=== PATIENT | male | born 1965 | race Caucasian/White ===

== ENCOUNTER 2021-12-19 21:09 | Emergency (ER) | payer SELFPAY ==
[~2021-12-19] VITALS: Ht 177.8 cm; Wt 129.3 kg
[2021-12-19 23:17] LABS: BASOPHILS ABSOLUTE AUTO 0.06 K/mm3 (0.00-0.23); BASOPHILS PERCENT AUTO 0 % (0-2); EOSINOPHILS ABSOLUTE AUTO 0.06 K/mm3 (0.00-0.68); EOSINOPHILS PERCENT AUTO 0 % (0-6); IMMATURE GRAN ABSOLUTE AUTO 0.14 K/mm3 (0.00-0.10); IMMATURE GRAN PERCENT AUTO 1 % (0-1); LYMPHOCYTES ABSOLUTE AUTO 3.58 K/mm3 (0.84-5.20); LYMPHOCYTES PERCENT AUTO 24 % (21-46); MONOCYTES ABSOLUTE AUTO 1.15 K/mm3 (0.16-1.47); MONOCYTES PERCENT AUTO 8 % (4-13); Mean Corpuscular HGB 28.9 pg (26.0-34.0); Mean Corpuscular HGB Conc 33.3 g/dL (31.5-36.5); Mean Corpuscular Volume 87 fL (80-100); Mean Platelet Volume 10.3 fL (9.1-12.4); NEUTROPHILS ABSOLUTE AUTO 10.12 K/mm3 (1.96-9.15); NEUTROPHILS PERCENT AUTO 67 % (41-73); Platelet Count 367 K/mm3 (150-400); RDW Coefficient Variation 12.9 % (11.7-14.2); RDW Standard Deviation 40.2 fL (35.1-46.3); White Blood Cell Count 15.11 K/mm3 (4.00-11.30)
[2021-12-19 23:29] LABS: Albumin, Blood 3.5 g/dL (3.4-5.0); Bilirubin, Total 0.5 mg/dL (0.1-1.0); Calcium, Blood 9.2 mg/dL (8.5-10.1); Creatinine, Blood 0.67 mg/dL (0.60-1.20); Globulin, Blood 3.4 g/dL (2.2-4.0); Potassium, Blood 4.1 mmol/L (3.5-5.5); Total Protein, Blood 6.9 g/dL (6.4-8.2)
[2021-12-20 01:13] LABS: Influenza A, PCR NEGATIVE (NEGATIVE); Influenza B, PCR NEGATIVE (NEGATIVE); Resp Syncytial Virus, PCR NEGATIVE (NEGATIVE); SARS-Cov-2 (COVID-19) PCR, MMC NEGATIVE (NEGATIVE)
== END 2021-12-20 04:59 | disposition short-term general hospital (02) ==
LOC: ER 21:09
PROVIDERS: Student in an Organized Health Care Education/Training Program
DX: I21.4 Non-ST elevation (NSTEMI) myocardial infarction (principal); K92.2 Gastrointestinal hemorrhage, unspecified; I10 Essential (primary) hypertension; D64.9 Anemia, unspecified; D72.829 Elevated white blood cell count, unspecified; Z20.822 Contact with and (suspected) exposure to COVID-19
CPT/HCPCS: 0241U; 71275; 80053; 83735; 83880; 84484; 85025; 93005; 93010; A9270; C9113; J2765; J7030; Q9967

== ENCOUNTER 2022-04-14 00:58 | Emergency (ER) | payer OTHER ==
[~2022-04-14] VITALS: Ht 177.8 cm; Wt 115.7 kg
[2022-04-14 02:15] LABS: BASOPHILS ABSOLUTE AUTO 0.05 K/mm3 (0.00-0.23); BASOPHILS PERCENT AUTO 0 % (0-2); EOSINOPHILS ABSOLUTE AUTO 0.07 K/mm3 (0.00-0.68); EOSINOPHILS PERCENT AUTO 1 % (0-6); Hematocrit 36.9 % (37.0-53.0); Hemoglobin 11.1 g/dL (13.5-17.5); IMMATURE GRAN ABSOLUTE AUTO 0.04 K/mm3 (0.00-0.10); IMMATURE GRAN PERCENT AUTO 0 % (0-1); LYMPHOCYTES ABSOLUTE AUTO 1.63 K/mm3 (0.84-5.20); LYMPHOCYTES PERCENT AUTO 14 % (21-46); MONOCYTES ABSOLUTE AUTO 0.72 K/mm3 (0.16-1.47); MONOCYTES PERCENT AUTO 6 % (4-13); Mean Corpuscular HGB 27.3 pg (26.0-34.0); Mean Corpuscular HGB Conc 30.1 g/dL (31.5-36.5); Mean Corpuscular Volume 91 fL (80-100); Mean Platelet Volume 9.9 fL (9.1-12.4); NEUTROPHILS ABSOLUTE AUTO 9.16 K/mm3 (1.96-9.15); NEUTROPHILS PERCENT AUTO 79 % (41-73); Platelet Count 385 K/mm3 (150-400); RDW Coefficient Variation 13.9 % (11.7-14.2); RDW Standard Deviation 45.7 fL (35.1-46.3); Red Blood Cell Count 4.07 M/mm3 (4.30-5.90); White Blood Cell Count 11.67 K/mm3 (4.00-11.30)
[2022-04-14 02:38] LABS: Albumin, Blood 3.2 g/dL (3.4-5.0); Albumin/Globulin Ratio 0.8 (0.8-1.8); Bilirubin, Total 0.5 mg/dL (0.1-1.0); Bun/Creatinine Ratio 19.4 (12.0-20.0); Calcium, Blood 9.1 mg/dL (8.5-10.1); Creatinine, Blood 1.75 mg/dL (0.60-1.20); Globulin, Blood 4.1 g/dL (2.2-4.0); Potassium, Blood 3.9 mmol/L (3.5-5.5); Total Protein, Blood 7.3 g/dL (6.4-8.2)
[2022-04-16] MEDS ORDERED: MELA3 PO (14:51)
[2022-04-16] MEDS ORDERED: ELIQUIS5 M2 PO (14:53)
[2022-04-16] MEDS ORDERED: ATORVASTATIN CA80 M1 PO (14:54)
[2022-04-16] MEDS ORDERED: CLOP75 PO (14:55)
[2022-04-16] MEDS ORDERED: Glucophage 500 mg PO (14:57)
[2022-04-16] MEDS ORDERED: METO50ER PO (14:58)
[2022-04-16] MEDS ORDERED: TORS10 PO (14:59)
[2022-04-16] MEDS ORDERED: TRAZ50 PO (15:00)
== END 2022-04-14 05:23 | disposition home or self-care (01) ==
LOC: ER 00:58
PROVIDERS: Emergency Medicine
DX: I50.9 Heart failure, unspecified (principal); E11.9 Type 2 diabetes mellitus without complications; Z95.5 Presence of coronary angioplasty implant and graft
CPT/HCPCS: 71045; 80053; 83880; 84484; 85025; 93005; 93010; J1940

== ENCOUNTER 2022-04-20 20:21 | Emergency (ER) | payer OTHER ==
[~2022-04-20] VITALS: Ht 177.8 cm; Wt 124.7 kg
[~2022-04-20 20:21] MED LIST: ATORVASTATIN CA80 M1 PO; BUME1 PO; CLOP75 PO; ELIQUIS5 M2 PO; INSULIN GL100 UNIT/1 SC; K-Dur10 MEQ PO; MELA3 PO; METF500 PO; METHYL B PO; METO50ER PO; MIDO5 PO; PANTOPRAZOLE SO40 M2 PO; TORSE20 PO; TRAZ50 PO
[2022-04-20 20:58] LABS: BASOPHILS ABSOLUTE AUTO 0.06 K/mm3 (0.00-0.23); BASOPHILS PERCENT AUTO 1 % (0-2); EOSINOPHILS ABSOLUTE AUTO 0.09 K/mm3 (0.00-0.68); EOSINOPHILS PERCENT AUTO 1 % (0-6); Hematocrit 33.5 % (37.0-53.0); Hemoglobin 10.3 g/dL (13.5-17.5); IMMATURE GRAN ABSOLUTE AUTO 0.03 K/mm3 (0.00-0.10); IMMATURE GRAN PERCENT AUTO 0 % (0-1); LYMPHOCYTES ABSOLUTE AUTO 2.09 K/mm3 (0.84-5.20); LYMPHOCYTES PERCENT AUTO 19 % (21-46); MONOCYTES ABSOLUTE AUTO 0.89 K/mm3 (0.16-1.47); MONOCYTES PERCENT AUTO 8 % (4-13); Mean Corpuscular HGB 27.2 pg (26.0-34.0); Mean Corpuscular HGB Conc 30.7 g/dL (31.5-36.5); Mean Corpuscular Volume 89 fL (80-100); Mean Platelet Volume 10.5 fL (9.1-12.4); NEUTROPHILS PERCENT AUTO 72 % (41-73); Platelet Count 442 K/mm3 (150-400); RDW Coefficient Variation 14.2 % (11.7-14.2); RDW Standard Deviation 45.7 fL (35.1-46.3); Red Blood Cell Count 3.78 M/mm3 (4.30-5.90); White Blood Cell Count 11.06 K/mm3 (4.00-11.30)
[2022-04-20 21:17] LABS: Alanine Aminotransfer (ALT/SGP 21 U/L (12-78); Albumin, Blood 3.3 g/dL (3.4-5.0); Albumin/Globulin Ratio 0.8 (0.8-1.8); Alk Phos 76 U/L (50-136); Anion Gap 7 mmol/L (6-16); Aspartate Aminotrans (AST/SGOT 48 U/L (12-37); Bilirubin, Total 0.9 mg/dL (0.1-1.0); Blood Urea Nitrogen 41 mg/dL (8-24); Bun/Creatinine Ratio 24.1 (12.0-20.0); CO2, Blood 28 mmol/L (21-32); Calcium, Blood 9.2 mg/dL (8.5-10.1); Chloride, Blood 103 mmol/L (98-108); Globulin, Blood 4.4 g/dL (2.2-4.0); Glomerular Filtration Rate 47 (60-); Glucose, Blood 157 mg/dL (70-99); Potassium, Blood 5.1 mmol/L (3.5-5.5); Sodium, Blood 138 mmol/L (136-145); Total Protein, Blood 7.7 g/dL (6.4-8.2)
[2022-04-20 23:16] LABS: Magnesium, Blood 2.5 mg/dL (1.6-2.4)
[2022-04-20 23:34] LABS: Source, Urine Clean Catch
[2022-04-20 23:37] LABS: Bilirubin, Urine Neg (Neg); Blood, Urine Neg (Neg); Glucose Qualitative, Urine Neg (Neg); Ketones, Urine Neg (Neg); Leukocyte Esterase, Urine Neg (Neg); Nitrite, Urine Neg (Neg); Protein, Urine Neg (Neg); Specific Gravity, Urine 1.015 (1.003-1.022); Urobilinogen, Urine NORM (Normal)
[2022-04-20 23:39] LABS: Appearance, Urine Clear (Clear); Color, Urine Yellow (P-Yellow)
[2022-04-21 00:15] LABS: Ethanol (Alcohol), Blood, Med <3 mg/dL
== END 2022-04-21 02:50 | disposition home or self-care (01) ==
LOC: ER 20:21
PROVIDERS: Emergency Medicine
DX: R18.8 Other ascites (principal); I50.9 Heart failure, unspecified; R14.0 Abdominal distension (gaseous); E11.9 Type 2 diabetes mellitus without complications; Z79.899 Other long term (current) drug therapy; Z79.01 Long term (current) use of anticoagulants; Z79.02 Long term (current) use of antithrombotics/antiplatelets; Z79.4 Long term (current) use of insulin
CPT/HCPCS: 36415; 71046; 74176; 80053; 81003; 83605; 83690; 83735; 83880; 84484; 85025; 93005; 93010; A9270; G0480; J1790

== ENCOUNTER 2022-05-09 13:44 | Inpatient (IN) | payer OTHER ==
[~2022-05-09] VITALS: Ht 177.8 cm; Wt 133.0 kg
[2022-05-09 14:27] LABS: BASOPHILS ABSOLUTE AUTO 0.05 K/mm3 (0.00-0.23); BASOPHILS PERCENT AUTO 1 % (0-2); EOSINOPHILS ABSOLUTE AUTO 0.06 K/mm3 (0.00-0.68); EOSINOPHILS PERCENT AUTO 1 % (0-6); Hematocrit 36.2 % (37.0-53.0); Hemoglobin 10.9 g/dL (13.5-17.5); IMMATURE GRAN ABSOLUTE AUTO 0.03 K/mm3 (0.00-0.10); IMMATURE GRAN PERCENT AUTO 0 % (0-1); LYMPHOCYTES ABSOLUTE AUTO 1.89 K/mm3 (0.84-5.20); LYMPHOCYTES PERCENT AUTO 18 % (21-46); MONOCYTES ABSOLUTE AUTO 1.07 K/mm3 (0.16-1.47); MONOCYTES PERCENT AUTO 10 % (4-13); Mean Corpuscular HGB 25.4 pg (26.0-34.0); Mean Corpuscular HGB Conc 30.1 g/dL (31.5-36.5); Mean Corpuscular Volume 84 fL (80-100); Mean Platelet Volume 9.7 fL (9.1-12.4); NEUTROPHILS ABSOLUTE AUTO 7.55 K/mm3 (1.96-9.15); NEUTROPHILS PERCENT AUTO 71 % (41-73); Platelet Count 398 K/mm3 (150-400); Red Blood Cell Count 4.29 M/mm3 (4.30-5.90); White Blood Cell Count 10.65 K/mm3 (4.00-11.30)
[2022-05-09 14:46] LABS: Albumin, Blood 3.2 g/dL (3.4-5.0); Albumin/Globulin Ratio 0.8 (0.8-1.8); Bilirubin, Total 0.8 mg/dL (0.1-1.0); Bun/Creatinine Ratio 18.7 (12.0-20.0); Calcium, Blood 9.2 mg/dL (8.5-10.1); Creatinine, Blood 2.03 mg/dL (0.60-1.20); Potassium, Blood 5.3 mmol/L (3.5-5.5); Total Protein, Blood 7.2 g/dL (6.4-8.2)
[2022-05-09] MEDS ORDERED: Insulin Glargine-Yfg SC (15:41)
[2022-05-09] MEDS ORDERED: ELIQUIS5 M2 PO (15:43)
[2022-05-09] MEDS ORDERED: ATORVASTATIN CA80 M1 PO (15:44)
[2022-05-09] MEDS ORDERED: BUME2 PO (15:45)
[2022-05-09] MEDS ORDERED: CLOP75 PO (15:47)
[2022-05-09] MEDS ORDERED: METO50ER PO (15:48)
[2022-05-09] MEDS ORDERED: MIDO5 PO (15:49)
[2022-05-09] MEDS ORDERED: PANT40 PO (15:51)
[2022-05-09] MEDS ORDERED: TRAZ100 PO (15:52)
[2022-05-09] MEDS ORDERED: VITAMIN D31000 UNI1 PO (18:12)
[2022-05-09] MEDS ORDERED: MIRALAX11910 PO (18:13)
--- NOTE | 2022-05-09 18:33 | NUR ---
ADMIT/SHIFT SUMMARY: PATIENT ADMIT TO MED 359. ABLE TO STAND AND TRANSFER WITH ONE PERSON ASSIST. USES WALKER AT BASELINE. BEDSIDE COMMODE AND WALKER TO VOID. ALERT AND ORIENTED X4. OVERALL WEAK. DENIES N/T. PERRLA, WEARING GLASSES. TELE SHOWING SINUS TACH WITH HR 90-110'S. DENIES CHEST PAIN/PRESSURE. BP ON SOFTER SIDE. PO MIDODRINE GIVEN WITH IV BUMEX. GENERALIZED EDEMA THROUGHOUT ENTIRE BODY. ON ROOM AIR SATING ABOVE 92% LUNGS SOUNDING DIM AND FINE CRACKLES IN BASES. SOB ON EXCERTION AND WITH MOVEMENTS. DENIES ABDOMINAL PAIN/NAUSEA. OCCASIONAL COUGH WITH SOME DRY HEAVING POST DINNER. PATIENT DENIES NEED FOR NAUSEA MEDS. COMPLAINS OF DISCOMFORT THROUGHOUT AND TIGHTNESS DUE TO SWELLING. FR IN PLACE WELL STRICT I/O. PATIENT EDUCATED ON UNIT, CALL LIGHT, FALL PREVENT AND PLAN OF CARE. ACHS BLOOD SUGARS. INSULIN PENS IN MED DRAWER. MED REC COMPLETED. WILL CONTINUE TO MONITOR AND REPORT OFF TO ONCOMING RN. MIGUEL IN AND UPDATED ON PLAN.
--- NOTE | 2022-05-10 05:00 | NUR ---
SUMMARY: PT A/OX4, CALLS APPROPRIATELY TO SPECIFY NEEDS AND IS PLEASANT AND COOPERRATIVE W/CARE. HE'S UP W/1PA TO BSC AND IS DIURESING WELL W/BUMEX. GENERALIZED EDEMA PERSISTS W/3+ SWELLING OBSERVED TO BLE'S. HE CONT'S TO BE SOB W/EXERTION BUT MAINTAINS SPO2>94% ON RA. LS DIMINISHED T/O W/FINE CRACKLES AUSCULTATED TO L.LOWER LOBE. PT COMPLIANT W/1500 FR AND STRICT I/O'S BEING MONITORED. HE'S NSR/S.TACH ON TELEMETRY W/HR 90'S-100'S BPM. TRAZADONE RECIEVED AT HS FOR GOOD EFFECT. NO ACUTE CHANGES, VSS/AFEBRILE. WCTM AND REPOPRT TO DAY RN.
[2022-05-10 05:28] LABS: BASOPHILS ABSOLUTE AUTO 0.03 K/mm3 (0.00-0.23); BASOPHILS PERCENT AUTO 0 % (0-2); EOSINOPHILS ABSOLUTE AUTO 0.09 K/mm3 (0.00-0.68); EOSINOPHILS PERCENT AUTO 1 % (0-6); Hematocrit 33.7 % (37.0-53.0); Hemoglobin 10.3 g/dL (13.5-17.5); IMMATURE GRAN ABSOLUTE AUTO 0.03 K/mm3 (0.00-0.10); IMMATURE GRAN PERCENT AUTO 0 % (0-1); LYMPHOCYTES ABSOLUTE AUTO 1.78 K/mm3 (0.84-5.20); LYMPHOCYTES PERCENT AUTO 19 % (21-46); MONOCYTES ABSOLUTE AUTO 0.87 K/mm3 (0.16-1.47); MONOCYTES PERCENT AUTO 9 % (4-13); Mean Corpuscular HGB 25.3 pg (26.0-34.0); Mean Corpuscular HGB Conc 30.6 g/dL (31.5-36.5); Mean Corpuscular Volume 83 fL (80-100); Mean Platelet Volume 9.7 fL (9.1-12.4); NEUTROPHILS ABSOLUTE AUTO 6.43 K/mm3 (1.96-9.15); NEUTROPHILS PERCENT AUTO 70 % (41-73); Platelet Count 352 K/mm3 (150-400); RDW Coefficient Variation 14.9 % (11.7-14.2); Red Blood Cell Count 4.07 M/mm3 (4.30-5.90); White Blood Cell Count 9.23 K/mm3 (4.00-11.30)
[2022-05-10 05:47] LABS: Albumin, Blood 3.2 g/dL (3.4-5.0); Albumin/Globulin Ratio 0.8 (0.8-1.8); Bilirubin, Total 0.7 mg/dL (0.1-1.0); Bun/Creatinine Ratio 19.6 (12.0-20.0); Calcium, Blood 9.1 mg/dL (8.5-10.1); Creatinine, Blood 2.04 mg/dL (0.60-1.20); Globulin, Blood 3.9 g/dL (2.2-4.0); Potassium, Blood 4.7 mmol/L (3.5-5.5); Total Protein, Blood 7.1 g/dL (6.4-8.2)
--- NOTE | 2022-05-10 09:21 | NUR ---
SPOKE TO DR TYSON- PT BP GAVE PO SHAGGY, JEROD TO SE ABOUT GIVING THE IV BUMEX. ORDER RECIEVED TO GIVE THE IV BUMEX NOW.
--- NOTE | 2022-05-10 12:06 | NUR ---
CRITICAL VALUE- CALLED DR TYSON AFTER LAB NOTIFIED OF A CRITICAL LACTIC AT 2.1. RECIEVED ORDER TO REPEAT LACTIC IN 2 HOURS, COMPRESSION STOCKINGS, ELEVATE EXTREMITIES. PT EXPERIENCING SOB WITH LITTLE EXERTION, D.T SCROTAL EDEMA PT CAN NOT USE URINAL HE HAS TO GET UP TO THE BSC. IV BUMEX WAS GIVEN PER MD ORDER THIS AM. PT C/O DIZZINESS WITH MOVEMENT, VS STABLE AT THIS TIME. PT HAS INCREASED DIFFICULTY BREATHING WHILE LAYING DOWN, UP IN RECLINER, WITH LEGS ELEVATED ON PILLOWS, PLACED JESSY HOSE. WILL CTM.
--- NOTE | 2022-05-10 17:50 | NUR ---
URINE SAMPLE COLLECTED FROM DUONG CATHETER AND SENT TO LAB FOR UA PER PROTOCOL.
--- NOTE | 2022-05-10 18:06 | NUR ---
SUMMARY Assumed care of pt on arrival to ICU 15 from room 359 at 1400. Report received from Angella EAST. Pt transferred to ICU for purpose of IV inotrope therapy with diuresis. This RN discussed plan of care with surveillance camera technician Dr Lisa and director of online merchandising Dr Pelaez. There has been minimal change in pt's condition since arrival to ICU. Assesment is as follows. Neuro/Musc/Psych: A&O x 4. Answers questions. Follows commands. Verbalizes needs. Pleasant and cooperative with care. Able to engage in complex conversation. Pt struggles to recall health history due to prolonged hospitalization this summer, but is able to provide a good overall summary. Cough, gag, swallow intact. 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 Pt is overall weak, but no unilateral deficit noted. Able to move to commode independently using walker. Reports interest in going to rehab after hospitalization. Pt states he does not feel strong enough. States he was able to climb 3 stairs when he was discharged home from rehab, but has 20+ stairs to enter apartment and states "It took me over two hours to get upstairs when I got home". Pt's spouse in to see patient, received update from this RN. Otherwise, patient uses personal cellphone to update family and friends. Respiratory: Lungs clear, dim t/o. SpO2 90% or greater RA. Dyspnea with exertion. Dry, nonproductive cough, which pt states is chronic. Cardiac: Dobutamine at 2 mcg/kg/min. Pt's MAP has never been less than 65 since ICU transfer, however dobutamine started per t/o from Dr Lisa to increase cardiac output and renal perfusion. Pt has been sinus tach, rate 115-120. Frequent PVCs, often has runs of bigeminy or trigeminy. GI: Pt states ABD is distended compared to his baseline and states presentation to ER was partially due to "I felt like my belly was going to bust open". : Pt was standing to void into bedside commode. Per Dr Pelaez, PVR performed and measured 277 mL. Therefore, hauser catheter-coude was inserted with uro-jet lidocaine. Urine labs pending. Skin: Pt has skin breakdown to coccyx, dressed with pink border foam dressing. Yeasty excoriation noted to right groin, where thigh meets pubis. Plan to apply antifungal powder.
[2022-05-10 18:11] LABS: Source, Urine Clean Catch
[2022-05-10 18:18] LABS: Appearance, Urine Clear (Clear); Bilirubin, Urine Neg (Neg); Blood, Urine Neg (Neg); Color, Urine Yellow (P-Yellow); Glucose Qualitative, Urine Neg (Neg); Ketones, Urine Neg (Neg); Leukocyte Esterase, Urine Neg (Neg); Nitrite, Urine Neg (Neg); Protein, Urine Neg (Neg); Specific Gravity, Urine 1.015 (1.003-1.022); Urobilinogen, Urine NORM (Normal)
[2022-05-10 18:29] LABS: White Blood Cells Urine 0-2 /hpf (0-5)
[2022-05-10 18:50] LABS: Eosinophils-Raw #,Urine 0
[2022-05-11 05:51] LABS: BASOPHILS ABSOLUTE AUTO 0.02 K/mm3 (0.00-0.23); BASOPHILS PERCENT AUTO 0 % (0-2); EOSINOPHILS PERCENT AUTO 1 % (0-6); Hematocrit 31.2 % (37.0-53.0); Hemoglobin 9.5 g/dL (13.5-17.5); IMMATURE GRAN ABSOLUTE AUTO 0.02 K/mm3 (0.00-0.10); IMMATURE GRAN PERCENT AUTO 0 % (0-1); LYMPHOCYTES ABSOLUTE AUTO 1.22 K/mm3 (0.84-5.20); LYMPHOCYTES PERCENT AUTO 14 % (21-46); MONOCYTES ABSOLUTE AUTO 0.85 K/mm3 (0.16-1.47); MONOCYTES PERCENT AUTO 9 % (4-13); Mean Corpuscular HGB 25.4 pg (26.0-34.0); Mean Corpuscular HGB Conc 30.4 g/dL (31.5-36.5); Mean Corpuscular Volume 83 fL (80-100); Mean Platelet Volume 9.4 fL (9.1-12.4); NEUTROPHILS ABSOLUTE AUTO 6.83 K/mm3 (1.96-9.15); NEUTROPHILS PERCENT AUTO 76 % (41-73); Platelet Count 340 K/mm3 (150-400); RDW Standard Deviation 45.2 fL (35.1-46.3); Red Blood Cell Count 3.74 M/mm3 (4.30-5.90); White Blood Cell Count 9.04 K/mm3 (4.00-11.30)
[2022-05-11 05:56] LABS: Percent Saturation 4.6 % (20.0-50.0)
--- NOTE | 2022-05-11 06:00 | NUR ---
SHIFT SUMMARY: PT REMAINS ON DOBUTAMINE AT 2 MCQ/HR. BP REMAINS SOFT IN THE 90-110'S, MAPS >60. HR REMAINS SINUS TACH IN THE 110-120'S. WEIGHT DECREASED BY 1.1LBS THIS AM. CONTINUES TO +3 EDEMA IN ABD, GROIN, DOWN TO TOES. LS REMAINS DIMINISHED WITH NON-PRODUCTIVE COUGH. DID HAVE TO PLACE 2L NC DURING NIGHT FOR DROPS IN SATS DOWN TO THE 60'S, HE NEVER SUSTAINED BUT CONTINUED TO DROP, DID NOTE THAT HE HAS SLEEP APNEA. MILD HEADACHE NOTED, TYLENOL WAS ORDERED AND GIVEN. CONTIPATED WITH ONLY RIDGE LAST NIGHT, HE WAS GIVEN STOOL SOFTNER AND SUPPOSITORY. REMAINED ON FLUID RESTRICTION. URINE OUTPUT GOOD T/O NIGHT WITH TOTAL OUTPUT 1450. USES CALL LIGHT APPROPRIATLY.
[2022-05-11 08:22] LABS: Magnesium, Blood 2.4 mg/dL (1.6-2.4)
--- NOTE | 2022-05-11 08:37 | NUR ---
ASSUMED CARE PT IS INTUBATED W/ VENT SETTINGS AT 18/530/5/60%; ETT 8.0 27CM LIPS/NARES; SPO2 >92%. MAP >65. PROPOFOL GTT AT 40MCG. COARSE LUNG SOUNDS, HYPOACTIVE BOWEL TONES, AND SOME EDEMA NOTED. RIGHT LUNG HAS RHONCHI UPON EXHALATION; MINIMAL SPUTUM WITH SUCTIONING.
--- NOTE | 2022-05-11 08:45 | NUR ---
ASSUMED CARE PT IS ALERT AND ORIENTED X4. SPO2 >92% ON RA. MAP >65; DOBUTAMINE GTT @2MCG. PT HAS SEVERE PITTING EDEMA FROM THE ABDOMEN DOWN. PT STATES THAT IT HAS GONE DOWN FOR HIM SINCE LAST NIGHT AND IS MUCH MORE COMFORTABLE FOR HIM. LLQ TENDERNESS STILL PRESENT. PT HAD SMALL BOWEL MOVEMENT PER OFFGOING NURSE, STILL CONSTIPATED. CRACKLES NOTED IN BASES. NON PRODUCTIVE COUGH PRESENT.
[2022-05-11 08:53] LABS: Albumin/Globulin Ratio 0.8 (0.8-1.8); Bilirubin, Total 0.7 mg/dL (0.1-1.0); Bun/Creatinine Ratio 19.7 (12.0-20.0); Calcium, Blood 8.7 mg/dL (8.5-10.1); Creatinine, Blood 1.98 mg/dL (0.60-1.20); Globulin, Blood 3.6 g/dL (2.2-4.0); Potassium, Blood 3.9 mmol/L (3.5-5.5); Total Protein, Blood 6.6 g/dL (6.4-8.2)
--- NOTE | 2022-05-11 18:21 | NUR ---
SHIFT SUMMARY.... AT 1200 THIS RN NOTED THE PT'S UPPER RIGHT ARM WAS SLIGHTLY MORE SWOLLEN THAN THE LEFT, THE PT HAD A POWERGLIDE WITH DOUBUTAMINE RUNNING AT 2MCG. THE POWERGLIDE FLUSHED EASILY BUT DID NOT DRAW. THIS RN STOPPED THE DOUBUTAMINE GTT AND STARTED ANOTEHR POWERGLIDE TO THE BIRD AND RESTARTED THE DOUBUTAMINE IN THE BIRD POWERGLIDE. THE PT'S IRON INFUSION WAS STARTED IN THE CHRISTIAN POWERGLIDE, AFTER THE INFUSION WAS DONE THE PT STARTED TO C/O OF PAIN TO THE CHRISTIAN. WHEN ASSESSED THE PT'S CHRISTIAN WAS MORE SWOLLEN, RED AND WARM. THE POWERGLIDE WAS D/C'd AND PROVIDER NOTIFIED. WARM COMPRESSES WERE STARTED AND THE PT WAS GIVEN SUB Q REGITINE. AN ULTRA SOUND WAS ALSO DONE TO THE CHRISTIAN TO R/O DVT WHICH WAS NEGATIVE. THE PT CONTINUED TO C/O OF 10/10 PAIN TO THE CHRISTIAN, THE PROVIDER WAS CALLED AND NEW ORDERS GIVEN FOR PAIN MEDICATION. THE PT'S VS HAVE BEEN STABLE T/O THIS SHIFT ON THE 2MCG OF DOUBUTAMINE. HE HAS BEEN UP IN THE RECLINER CHAIR MOST OF THIS SHIFT WITH SBA TO THE [facility] [place] THE PT HAS NOT HAD A BM THIS SHIFT. THE PT'S DUONG IS PATENT AND DRAINED [address] [facility] PT DENIED ANY CHEST PAIN/PRESSURE. HE DOES HAVE A DRY, NONPRODUCTIVE COUGH THE PT STATES IS "NORMAL" FOR HIM. CALL LIGHT IN REACH WILL CONTINUE TO MONITOR UNTIL REPORT IS GIVEN TO ONCOMING RN.
[2022-05-12 04:02] LABS: Albumin, Blood 3.1 g/dL (3.4-5.0); Anion Gap 6 mmol/L (6-16); Blood Urea Nitrogen 31 mg/dL (8-24); Bun/Creatinine Ratio 17.8 (12.0-20.0); CO2, Blood 32 mmol/L (21-32); Calcium, Blood 8.4 mg/dL (8.5-10.1); Chloride, Blood 101 mmol/L (98-108); Creatinine, Blood 1.74 mg/dL (0.60-1.20); Glomerular Filtration Rate 45 (60-); Glucose, Blood 128 mg/dL (70-99); Phosphorus, Blood 3.7 mg/dL (2.5-4.9); Potassium, Blood 3.2 mmol/L (3.5-5.5); Sodium, Blood 139 mmol/L (136-145)
--- NOTE | 2022-05-12 07:15 | NUR ---
Assumed care of pt from Serg EAST. Pt is currently A&O x 4. Answers questions. Follows commands. Verbalizes needs. Pleasant and cooperative with care. 2 LPM NC, for SpO2 90% or greater RA.
--- NOTE | 2022-05-12 07:17 | NUR ---
SHIFT SUMMARY: PATIENT HAD AN UNEVENTFUL NIGHT WITH NO ACUTE EVENTS. NEURO: PLEASANT, COOPERATIVE, AFEBRILE. ORIENTED. CARDS: ST, RATES IN THE 110S. BP WDL. +2 PITTING EDEMA THROUGHOUT. THURMAN. RESP: RA WHILE AWAKE, 2-4L WHILE ASLEEP. MAY BENEFIT FROM SLEEP STUDY. LS MORE COARSE THIS MORNING. MSK: +1 ASSIST, GENERALLY HAS OK STRENGTH FOR STAND/PIVOT. NOT ABLE TO AMBULATE FAR WITHOUT DYSPNEA. INTEG: RUE SITE LOOKS STABLE, STILL PAINFUL. ECCHYMOTIC AND INFLAMED. GI: SLIGHT NAUSEA AFTER PRN MORPHINE; ADVISE VERY SLOW PUSH. HE DID HAVE ONE SMALL EMESIS. HE IS CONSTIPATED. ATTEMPTED BM X3 WITHOUT RESULT. : UOP ADEQUATE. DUONG PATENT AND DRAINING TO GRAVITY. ENDO: AC/HS, NO NOVOLOG GIVEN.
--- NOTE | 2022-05-12 18:34 | NUR ---
Summary Pt A&O x 4. Answers questions, follows commands, verbalizes needs. Pleasant and cooperative with care. Able to use commode and stand to transfer to recliner. Did not work with physical therapy today because he had an episode of chest pain, accompanied by shortness of breath. EKG obtained and Dr Lisa notified. Imdur started. Episode resolved. Dobutamine stopped at [address] Lisa to assess continued need. So far, pt has tolerated well. Pt continues to experience pain to RUE. Pt had one episode of vomiting several hours after receiving 4 mg morphine. This afternoon, pt received only 2 mg and he seemed to tolerate this much better, as he did not vomit.
[2022-05-13 04:13] LABS: Anion Gap 5 mmol/L (6-16); Blood Urea Nitrogen 27 mg/dL (8-24); Bun/Creatinine Ratio 17.3 (12.0-20.0); CO2, Blood 33 mmol/L (21-32); Calcium, Blood 8.3 mg/dL (8.5-10.1); Chloride, Blood 100 mmol/L (98-108); Creatinine, Blood 1.56 mg/dL (0.60-1.20); Glomerular Filtration Rate 52 (60-); Glucose, Blood 143 mg/dL (70-99); Phosphorus, Blood 3.3 mg/dL (2.5-4.9); Potassium, Blood 3.4 mmol/L (3.5-5.5); Sodium, Blood 138 mmol/L (136-145)
--- NOTE | 2022-05-13 06:04 | NUR ---
SHIFT SUMMARY: NO ACUTE EVENTS GENERAL: DOBUTAMINE OFF SINCE YESTERDAY AFTERNOON. NO FURTHER C/O CHEST PRESSURE OR PAIN; HOWEVER HE DOES FEEL "OFF" AND REPORTS INCREASED DYSPNEA WITH EXERTION. NEURO: AFEBRILE, PLEASANT AND COOPERATIVE. INTERMITTENT RUE PAIN. CARDIAC: REMAINS IN ST, RATES 100-120. BP WDL. NO REAL CHANGES TO EDEMA. DENIES CP/PRESSURE. TROPONIN TRENDING SLIGHTLY UPWARDS. RESP: 2L NC OVERNIGHT. INCREASED DYSPNEA WITH EXERTION. LUNGS CLEAR/DIMINISHED. MSK: STAND/PIVOT A BIT MORE DIFFICULT THIS EVENING. HE IS REQUIRING SOMETHING TO HELP BEAR WEIGHT WITH TRANSFERS. 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 HAS A MEPILEX IN PLACE. GI: GIVEN MORE PRN MEDS PER REQUEST. HE HAS NOT BEEN ABLE TO HAVE A BM BUT REPORTS PASSING GAS. BOWEL SOUNDS HAVE INCREASED AND NOW ASCULTATED IN 4/4 QUADRANTS. INTERMITTENT NAUSEA, USUALLY AFTER ACTIVITY. NO EMESIS. : >50ML/HR OFF DOBUTAMINE. DUONG PATENT AND DRAINING TO GRAVITY. ENDO: AC/HS; SLIDING SCALE COVERAGE DONE ORDERED.
[2022-05-13 06:18] LABS: Magnesium, Blood 2.3 mg/dL (1.6-2.4)
--- NOTE | 2022-05-13 08:25 | NUR ---
ASSUMED PT CARE AT 0715 PT SLEEPING, BUT EASILY AROUSABLE. ALERT AND ORIENTED X4; ABLE TO MAKE HIS NEEDS KNOWN. VERY PLEASANT AND COOPERATIVE WITH CARES. VERY SOB WITH MINIMAL EXERTION AND AT REST. PT ON ROOM AIR CURRENTLY OXYGEN SATURATIONS >90%. SINUS TACHYCARDIA WITH HR 110'S. BP'S STABLE. PT IS VERY EDEMATOUS. URINE OUTPUT AT 30CC AT START OF SHIFT. CURRENTLY ON A 1500CC FLUID RESTRICTION. OBTAINED WEIGHT THIS AM ON STANDING SCALE OF 131.0 KG FROM ADMIT WEIGHT OF 145.1 KG. PT IS SALINE LOCKED AT THIS TIME. POWERGLIDE TO LEFT UPPER ARM. DIFFUSE BRUISING AND PAINFUL TO THE TOUCH RIGHT UPPER ARM FROM PREVIOUS POWERGLIDE INFILTRATION. PT REQUESTED TYLENOL D/T 6/10 PAIN TO ARM. PT IS A 1PERSON STANDBY ASSIST D/T UNSTEADY GAIT. CALL LIGHT WITHIN REACH AND PT IS ABLE TO MAKE NEEDS KNOWN
--- NOTE | 2022-05-13 10:04 | NUR ---
DR. ALONSO TELEHEALTH VISIT UPDATED REGARDING CURRENT WEIGHT OF 144.0 KG. URINE OUTPUT SINCE [address] ALONSO STATED HER CONCERNS REGARDING THE DROP IN URINE OUTPUT AND WANTS TO AWAIT CARDIOLOGY'S OPINION TO SEE IF PT NEEDS TO GO BACK ON DOBUTAMINE GTT. WILL AWAIT DR. VENTURA TO ROUND AND RELAY CONCERNS.
--- NOTE | 2022-05-13 11:44 | NUR ---
DR. VENTURA IN ROOM DISCUSSED DECREASED URINE OUTPUT WITH ORDERS TO RESTART DOBUTAMINE AT 2MCG/KG/MIN. URINE OUTPUT WAS 150CC OVER 1.5 HOURS.
--- NOTE | 2022-05-13 17:39 | NUR ---
END OF SHIFT SUMMARY NO SIGNIFICANT CHANGES SINCE ASSUMPTION OF CARE. PT IS ON DOBUTAMINE AT 2MCG/KG/MIN; BP'S REMAIN STABLE. HELD MIDODRINE X2 ADMINISTRATIONS D/T STABLE BP'S WITH DOBUTAMINE GTT BACK ON. PT REMAINS WITH NO BMX5 DAYS. ADMINISTERED ALL PRN STOOL SOFTENERS, AND LASTLY A SUPPOSITORY; UNEFFECTIVE AT THIS TIME. BOWEL TONES REMAIN HYPOACTIVE. PT C/O HEMORRHOIDAL PAIN; ORDERS OBTAINED FOR CREAM, WHICH WAS EFFECTIVE. TOTAL PO INTAKE TODAY 1035 AND URINE OUTPUT 650CC. WILL CONTINUE TO MONITOR UNTIL REPORT IS HANDED OFF TO ONCOMING RN
[2022-05-14 04:13] LABS: BASOPHILS ABSOLUTE AUTO 0.02 K/mm3 (0.00-0.23); BASOPHILS PERCENT AUTO 0 % (0-2); EOSINOPHILS ABSOLUTE AUTO 0.08 K/mm3 (0.00-0.68); EOSINOPHILS PERCENT AUTO 1 % (0-6); Hematocrit 29.9 % (37.0-53.0); IMMATURE GRAN ABSOLUTE AUTO 0.05 K/mm3 (0.00-0.10); IMMATURE GRAN PERCENT AUTO 1 % (0-1); LYMPHOCYTES ABSOLUTE AUTO 0.86 K/mm3 (0.84-5.20); LYMPHOCYTES PERCENT AUTO 11 % (21-46); MONOCYTES ABSOLUTE AUTO 0.72 K/mm3 (0.16-1.47); MONOCYTES PERCENT AUTO 9 % (4-13); Mean Corpuscular HGB 25.1 pg (26.0-34.0); Mean Corpuscular HGB Conc 30.1 g/dL (31.5-36.5); Mean Corpuscular Volume 83 fL (80-100); Mean Platelet Volume 9.5 fL (9.1-12.4); NEUTROPHILS ABSOLUTE AUTO 6.37 K/mm3 (1.96-9.15); NEUTROPHILS PERCENT AUTO 79 % (41-73); Platelet Count 306 K/mm3 (150-400); RDW Coefficient Variation 15.1 % (11.7-14.2); RDW Standard Deviation 45.6 fL (35.1-46.3); Red Blood Cell Count 3.59 M/mm3 (4.30-5.90)
[2022-05-14 04:32] LABS: Albumin/Globulin Ratio 0.8 (0.8-1.8); Bilirubin, Total 0.9 mg/dL (0.1-1.0); Calcium, Blood 8.9 mg/dL (8.5-10.1); Creatinine, Blood 1.47 mg/dL (0.60-1.20); Globulin, Blood 3.8 g/dL (2.2-4.0); Magnesium, Blood 2.2 mg/dL (1.6-2.4); Phosphorus, Blood 3.2 mg/dL (2.5-4.9); Potassium, Blood 3.7 mmol/L (3.5-5.5); Total Protein, Blood 6.8 g/dL (6.4-8.2)
--- NOTE | 2022-05-14 08:06 | NUR ---
ASSUMED CARE PT IS ALERT AND ORIENTED X4. SPO2 >92% ON RA. MAP >65 W/ 2MCG OF DOBUTAMINE. HR IN THE 100-110S. HYPOACTIVE BOWEL TONES NOTED IN ALL 4 QUADRANTS. SEVERE EDEMA NOTED FROM ABDOMEN AND BELOW. NO C/O OF CP, SOB, OR ANY PAIN.
--- NOTE | 2022-05-14 10:47 | NUR ---
Upon hearing that pt received a poor prognosis this morning, I visit pt. PT is not in favor of Solid Waste Landfill Technician services but ends up talking about his medical history, about how he is processing his medical situation and his thoughts on and dying. We explore coping skills and resources as I provide therapeutic listening and normalizing his experience. Pt responds well. I will continue to remain available.
--- NOTE | 2022-05-14 10:54 | NUR ---
UPDATE DR CURIEL AND PALLIATIVE CARE IN TO SEE PT TO INFORM RECOMMENDATION TO MOVE TO HOSPICE/PALLIATIVE CARE AFTER DISCUSSION W/ [facility]. PT MADE DNR AND WITHHOLDING PURPLE WRISTBAND FROM PT (JUST ON OUTSIDE OF ROOM) PER DR. CURIEL.
[2022-05-14 12:10] LABS: Digoxin (Lanoxin) 0.14 ug/mL (0.80-2.00)
--- NOTE | 2022-05-14 12:22 | NUR ---
Pt is a very pleasant 56 year old man with systolic HF, ischemic cardiomyopathy, cardiac stenting. He was told this am he likely does not have long to live due to no further cardiac treatment options. He handled the news well, but states concern of how his will handle it. However, I remained at the bedside with him after he asked her to come to the hospital "right now", and she did appear to be handling this better than he thought she would. Pt tells me he doesn't believe in an afterlife, "When you're you're ". Left a card with both pt and his , in case they have questions regarding end of life care if and when they are ready to talk. Until then, will remain available.
--- NOTE | 2022-05-14 18:04 | NUR ---
UPDATE PT'S INFORMED CHARGE NURSE RN THAT SHE DID NOT KNOW PT WAS DNR STATUS AND THAT THE PT DID NOT KNOW EITHER. THIS RN WENT IN AND DISCUSSED RESUSCITATION EFFORTS EFFECT ON QUALITY OF LIFE. PT ALSO DISCUSSED W/ ABOUT NOT WANTING TO PUT HIS /CHILDREN THROUGH ANOTHER RESUSCITATION EFFORT. PT APPEARED UPSET D/T FINDING OUT BY DNR BAND ON OUTSIDE OF DOOR, BUT AFTER DISCUSSING W/ THIS RN, HOSPICE AND DNR STATUS WAS DECIDED TO CONTINUE.
--- NOTE | 2022-05-14 18:41 | NUR ---
SHIFT SUMMARY PT IS ALERT AND ORIENTED X4. SPO2 >92% ON RA/2L NC PRN. MAP >65. DECISION TO MOVE TO HOSPICE/DNR WAS MADE TODAY AFTER PT DISCUSSED W/ DR CURIEL AND SONNY EAST. DR CURIEL DISCUSSED W/ [facility] WHO SAID THERE WAS NOT MUCH LEFT TO BE DONE. DNR STATUS WAS AN ISSUE FOR A MOMENT (SEE NOTE), BUT HAS BEEN RESOLVED. >50ML/HR URINE OUTPUT. PT HAS NOT HAD A BOWEL MOVEMENT FOR THIS RN, BUT HYPOACTIVE BOWEL SOUNDS AUSCULTATED IN ALL QUADRANTS. DOBUTAMINE GTT AT 2MCG. CRACKLES NOTED IN BASES OF LUNGS; PT HAS DRY UNPRODUCTIVE COUGH. STILL EXTREMELY EDEMATOUS FROM ABDOMEN AND BELOW. PT AMBULATES W/ SBA.
--- NOTE | 2022-05-14 19:26 | NUR ---
ASSUMED CARE. HORACIO IS SITTING UP IN CHAIR, SPIRITS ARE LOW DUE TO RECENT NEWS OF PROGNOSIS. HE VERBALIZED UNDERSTANDING OF HIS CONDITION AND PLANS FOR HOSPICE CARE. REPORTS TODAY HE IS FEELING "OK" CONSIDERING. C/O CONSTIPATION WITH ONLY RIDGE OFF AND ON FOR DAYS. DISCUSSED POSSIBLE MILK OF MAG TO HELP, HE SAID HE JUST GOT A SUPPOSITORY AND WILL LIKE TO WAIT TILL MORNING, WANTS TO HAVE A GOOD NIGHT SLEEP IF HE COULD. PLAN FOR TONIGHTS CARE AND TREATMENTS DISCUSSED. CALL LIGHT IS IN REACH.
[2022-05-15 04:33] LABS: Albumin, Blood 2.9 g/dL (3.4-5.0); Anion Gap 5 mmol/L (6-16); Blood Urea Nitrogen 22 mg/dL (8-24); Bun/Creatinine Ratio 15.2 (12.0-20.0); CO2, Blood 33 mmol/L (21-32); Calcium, Blood 8.8 mg/dL (8.5-10.1); Chloride, Blood 100 mmol/L (98-108); Creatinine, Blood 1.45 mg/dL (0.60-1.20); Glomerular Filtration Rate 57 (60-); Glucose, Blood 124 mg/dL (70-99); Phosphorus, Blood 2.8 mg/dL (2.5-4.9); Potassium, Blood 3.6 mmol/L (3.5-5.5); Sodium, Blood 138 mmol/L (136-145)
--- NOTE | 2022-05-15 05:04 | NUR ---
SHIFT SUMMARY: HORACIO'S SPIRIT CONTINUES TO BE DOWN, TALKING ABOUT END OF LIFE. STATED THAT HE WANTED TO MAKE SURE IF ANYTHING HAPPENS HERE THAT HE WANTS HIS BODY DONANTED TO SCIENCE. CONTANT PONDERING ABOUT HOW IS AND KIDS ARE GOING TO HANDLE THINGS, QUESTIONING THINGS, DEFINANTLY IN THE GREIVING PHASE. PROVIDED THERAPUTIC LISTENING, COMFORT AND SUPPORT T/O THE NIGHT. OVERALL HE REMAINED STABLE. LS CONTINUE TO HAVE CRACKLES IN THE BASES, SATS MAINTAINED ON 2L NC. HR CONTINUES TO BE TACHY IN THE 110-130'S DEPENDING ON ACTIVITY. EDEMA IS UNCHANGED, WEEPING T/O LEGS. WEIGHT INCREASED BY 0.9 KG THIS AM DISPITE FLUID RESTRICTION. OUTPUT 900. MEDIUM BM HARD FORMED NOTED, SPOTS OF BLOOD NOTICED POSSIBLY FROM PUSHING. DOBUTIMINE GTT CONTINUES AT 2MCQ. REDNESS IN GROIN IMPROVED. DID REPORT THAT HE FELT MORE SOB THIS AM NO CHANGES TO ASSESSMENT. UP TO CHAIR WATCHING TV, CALL LIGHT IS IN REACH.
--- NOTE | 2022-05-15 08:00 | NUR ---
ASSUMED CARE PT ALERT AND ORIENTED X4. SPO2 >92% ON 3L NC; MAP >65. DOBUTAMINE GTT @2MCG/KG/MIN. NO ACUTE CHANGES OVER NIGHT PER OFFGOING RN. LUNG SOUNDS HAS CRACKLES IN BASES. EDEMATOUS. STILL CONSTIPATED. NO C/O CP, SOB, OR PAIN IN GENERAL.
--- NOTE | 2022-05-15 10:26 | NUR ---
UPDATE PT CALLED THIS RN INTO ROOM AND STATED HE COULDN'T BREATHE AND HAD CRUSHING/PRESSURE CP THAT DID NOT FLUCTUATE WITH BREATHING. PAIN WAS LOCALIZED. PT STATED THIS OCCURED LAST TIME HE WORE COMPRESSION STOCKINGS (HAD SCD'S ON) AND WAS LYING IN BED. REMOVED SCD'S AND HAD PT TAKE DEEP BREATH WHICH RELIEVED SOME OF PAIN/SOB. PULLED MORPHINE TO HELP W/ PAIN/SOB, BUT PT REFUSED. PT UP TO BEDSIDE COMMODE AND JUST HAS "MUSCLE ACHE" PAIN IN CHEST THAT IS SLOWLY GOING AWAY.
--- NOTE | 2022-05-15 10:31 | NUR ---
UPDATE DC'D SCD ORDER PER BURDEN FOR PT D/T REPEATED EPISODES OF SOB/CP WHEN LYING IN BED W/ THEM ON. PT IS ON ELIQUIS AND AMBULATES THROUGHOUT DAY.
--- NOTE | 2022-05-15 16:24 | NUR ---
Had a conversation with pt this morning, discussion on next steps. 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 However, care technician believes the pt could possibly go home, but this is not something the pt feels his would be capable of doing in their "tiny space" along with his teenage sons. Pt did ask today,"What happened to the possibility of a heart transplant?" I told him I didn't know about that, but I will ask Dr. Akins about this for sure. We also discussed the possibility of pt being taken off the dobutamine and transferring to the medical floor for comfort care. According to his bedside RN, pt does not tolerate being off of dobutamine for any length of time. Pt called his to come in to discuss the various scenarios. Palliative care will remain available.
--- NOTE | 2022-05-15 17:47 | NUR ---
SHIFT SUMMARY PT IS ALERT AND ORIENTED X4 UP IN RECLINER. SPO2 >92% ON 3L NC; MAP >65 W/ SBP IN THE 110'S. DOBUTAMINE GTT NOW AT 1MCG/KG/MIN. URINE OUTPUT HAS BEEN AT 60-70MLS/HR AFTER DOBUTAMINE TITRATION. PT HAD EPISODE WHERE HE BECAME SOB AND HAD CRUSHING, CONSTANT, LOCALISED CP THAT WAS ASSOCIATED WITH SCD'S (HAS OCCURED W/ COMPRESSION STOCKINGS BEFORE. DR CURIEL AWARE AND SCD'S DC'D. PT HAS NOT HAD ANY EPISODES SINCE. PT HAD 3 SMALL HARD BOWEL MOVEMENTS TODAY. FREQUENTLY AMBULATING TO BEDSIDE COMMODE/BED/RECLINER. STILL EXTREMELY EDEMATOUS. SONNY EAST AND DR CURIEL IN SEVERAL TIMES TO DISCUSS CAREPLAN.
[2022-05-16 04:00] LABS: Albumin, Blood 2.9 g/dL (3.4-5.0); Anion Gap 5 mmol/L (6-16); Blood Urea Nitrogen 21 mg/dL (8-24); Bun/Creatinine Ratio 14.6 (12.0-20.0); CO2, Blood 33 mmol/L (21-32); Calcium, Blood 8.7 mg/dL (8.5-10.1); Chloride, Blood 99 mmol/L (98-108); Creatinine, Blood 1.44 mg/dL (0.60-1.20); Glomerular Filtration Rate 57 (60-); Glucose, Blood 116 mg/dL (70-99); Phosphorus, Blood 3.2 mg/dL (2.5-4.9); Potassium, Blood 3.6 mmol/L (3.5-5.5); Sodium, Blood 137 mmol/L (136-145)
--- NOTE | 2022-05-16 06:55 | NUR ---
PATIENT AOX4. PT REQUESTED 3L NC WHILE SLEEPING. DENIES PAIN. REMAINS SINUS TACH 100-115. DOBUTAMINE @ 1 FOR UO>50. PATIENT REPORTS CONSTIPATION BUT REFUSING PRN SENNA AT THIS TIME.
--- NOTE | 2022-05-16 09:47 | NUR ---
Hour 1 of shift, urine output was 36 mL Dobutamine increased to from 1 to 2 mcg/kg/min Hour 2 of shift, urine output was [address] Akins. in to see joe. Plans to start Bumex drip and add zaroxolyn.
--- NOTE | 2022-05-16 13:59 | NUR ---
Bumex drip started. Zaroxolyn given. Improved urine output noted. Celestine in to see patient. Celestine and patient met with palliative care.
--- NOTE | 2022-05-16 16:31 | NUR ---
SUMMARY Neuro: Pt is A&O x 4. Answers questions, follows commands. Verbalizes needs. Pleasant and cooperative with care. Cough, reflex present. Musc: Mobilizes between bed, commode, and chair with minimal assistance. Occupational therapy saw patient to provide strategies for energy conservation with activity. Resp: Lungs clear t/o. Pt intermittently requests nasal cannula, which has 2 LPM NC. Unable to lie flat, as he experiences difficulty breathing. Cardiac: ST per monitor. BP stable. Dobutamine at 2 mcg/kg/min. Bumex drip started. 4+ weeping edema to BLE. GI: Two small, formed bowel movements today. : Intially, pt had less than 50 mL/hr urine output. Started bumex drip and urine output has significantly increased. At most recent measurement, pt had 350 mL urine out in one hour. Skin: Improving redness to groin folds. Fresh powder applied. Sacrum is ORLY. Skin is intact, but red/purple. Pt is able to sense pressure related discomfort and adjust his body accordingly. Psych: Pt is pleasantly interacting with staff. Spouse in to see patient today. Both met with palliative care. Therapy dog in to see patient today as well.
--- NOTE | 2022-05-16 17:02 | NUR ---
Met with pt and his this afternoon to further discuss pt's overall condtion, and available options. After a review with Dr. 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 If pt's health continues on current trajectory, the possibility of comfort care increases. However, adjustments to pt's medication regimen was made today by Dr. Akins, will re-evaluate tomorrow. Pt's questions regarding heart transplant and dialysis were answered yesterday by Dr. Akins, and unfortunatly, neither is a possibility for him at this time. Connected Custodian Athletic [employer] Tim with pt's for assist with greiving support group at her request.
--- NOTE | 2022-05-16 20:00 | NUR ---
ASSUMED CARE OF PT AT 1915. REPORT RECEIVED. PT PRESENTS IN BED. ALERT AND ORIENTED. PLEASANT AND COOPERATIVE WITH CARE AND ASSESSMENT. ABLE TO MAKE HIS NEEDS KNOWN. CONTINUES ON DOBUTAMINE DRIP. GOAL > 50 ML URINE OUTPUT PER HOUR.
--- NOTE | 2022-05-17 03:06 | NUR ---
HAVE MONITORED POWERGLIDE FOR PATENCY. DRAWS BLOOD WELL AND FLUSHES EASILY. PT HAS BEEN UP TO BEDSIDE COMMODE SEVERAL TIMES TO ATTEMPT BM. MEDICATED WITH TYLENOL ONCE FOR COMPLAINT OF LEG PAIN. PT CURRENTLY SLEEPING.
--- NOTE | 2022-05-17 07:15 | NUR ---
Assumed care of pt at 0700. Report received from Kael Ga. Dobutamine 2 mcg/kg/min. Bumex 0.2 mg/hr. ST per monitor. BP stable.
--- NOTE | 2022-05-17 07:18 | NUR ---
PT HAS DIURESED > 3500 ML THROUGH THE NIGHT. HAS BEEN ABLE TO GET UP TO BEDSIDE COMMODE AND RETURN TO BED WITH MINIMAL HELP. MEDICATED PT WITH MIRALAX AND DOCUSATE SODIUM THIS MORNING PER HIS REQUEST. REPORT GIVEN TO CRUZITO DAMICO
[2022-05-17 08:10] LABS: Albumin, Blood 2.9 g/dL (3.4-5.0); Anion Gap 8 mmol/L (6-16); Blood Urea Nitrogen 19 mg/dL (8-24); Bun/Creatinine Ratio 13.4 (12.0-20.0); CO2, Blood 35 mmol/L (21-32); Calcium, Blood 8.9 mg/dL (8.5-10.1); Chloride, Blood 96 mmol/L (98-108); Creatinine, Blood 1.42 mg/dL (0.60-1.20); Glomerular Filtration Rate 58 (60-); Glucose, Blood 108 mg/dL (70-99); Phosphorus, Blood 3.5 mg/dL (2.5-4.9); Potassium, Blood 2.8 mmol/L (3.5-5.5); Sodium, Blood 139 mmol/L (136-145)
--- NOTE | 2022-05-17 18:36 | NUR ---
SUMMARY Pt A&O x 4. Answers questions, follows commands, verbalizes needs. Pleasant and cooperative with care. SpO2 90% or greater with room air. Pt sometimes wears 2 LPM NC for comfort. Dobutamine remains at 2 mcg/kg/min and bumex 0.2 mg/hr. Pt states he has not noticed "feeling like I can't breathe for a couple days". Pt had excellent urine output this shift. Pt's spouse in to visit. Update given.
--- NOTE | 2022-05-17 19:37 | NUR ---
ASSUMED CARE OF PT AT 1900. REPORT RECEIVED. PT PRESENTS INITIALLY UP IN RECLINER. CURRENTLY UP TO BEDSIDE COMMODE. PT NEEDS ASSIST WITH TUBES AND WIRES. INDEPENDENT IN ROOM. ALERT AND ORIENTED. PLEASANT AND COOPERATIVE WITH CARE AND ASSESSMENT. DOES HAVE COMPLAINT OF BACK PAIN WHICH HE REQUESTS TYLENOL. DISCUSSED PLAN FOR THIS NIGHT. WILL REVIEW CHART AND PLAN OF CARE FOR THIS PT.
--- NOTE | 2022-05-17 22:12 | NUR ---
PT CURRENTLY BACK TO BED. RESTING WITHOUT COMPLAINTS. DID HAVE DOSE OF TRAZADONE, AND 650 MG TYLENOL FOR A COMPLAINT OF BACK PAIN. NO FURTHER COMPLAINTS. HAVE EMPTIED 1000 ML URINE FROM DUONG THIS EVENING.
--- NOTE | 2022-05-18 00:55 | NUR ---
CHECK OF POWERGLIDE PERIODACALLY REVEALS FLUSHES WELL, AND DRAWS BACK BLOOD WELL. PT CONTINUES ON DOBUTAMINE.
--- NOTE | 2022-05-18 02:58 | NUR ---
PT AWAKENS AND COMPLAINS OF CHEST PRESSURE. REQUESTS TYLENOL, AND EKG DONE. PT STATES NO LONGER HAS PRESSURE. COMPLAINS OF DISCOMFORT TO POSTERIOR LATERAL ASPECT OF RIGHT CALF. NOTED AREA OF REDNESS WITH WEEPING. PLACE MEPILIEX CLOVER OVER SITE. WILL CONTINUE TO MONITOR. PT HAS BEEN UP TO BEDSIDE COMMODE WITH MINIMAL HELP. PASSES FLATUS. NO BM.
[2022-05-18 05:03] LABS: BASOPHILS ABSOLUTE AUTO 0.03 K/mm3 (0.00-0.23); BASOPHILS PERCENT AUTO 0 % (0-2); EOSINOPHILS ABSOLUTE AUTO 0.14 K/mm3 (0.00-0.68); EOSINOPHILS PERCENT AUTO 2 % (0-6); Hematocrit 29.6 % (37.0-53.0); IMMATURE GRAN ABSOLUTE AUTO 0.04 K/mm3 (0.00-0.10); IMMATURE GRAN PERCENT AUTO 1 % (0-1); LYMPHOCYTES ABSOLUTE AUTO 1.09 K/mm3 (0.84-5.20); LYMPHOCYTES PERCENT AUTO 13 % (21-46); MONOCYTES ABSOLUTE AUTO 0.96 K/mm3 (0.16-1.47); MONOCYTES PERCENT AUTO 11 % (4-13); Mean Corpuscular HGB 25.2 pg (26.0-34.0); Mean Corpuscular HGB Conc 30.4 g/dL (31.5-36.5); Mean Corpuscular Volume 83 fL (80-100); Mean Platelet Volume 8.9 fL (9.1-12.4); NEUTROPHILS ABSOLUTE AUTO 6.44 K/mm3 (1.96-9.15); NEUTROPHILS PERCENT AUTO 74 % (41-73); Platelet Count 311 K/mm3 (150-400); RDW Coefficient Variation 16.4 % (11.7-14.2); Red Blood Cell Count 3.57 M/mm3 (4.30-5.90)
[2022-05-18 05:29] LABS: Albumin, Blood 2.9 g/dL (3.4-5.0); Anion Gap 8 mmol/L (6-16); Blood Urea Nitrogen 18 mg/dL (8-24); Bun/Creatinine Ratio 13.3 (12.0-20.0); CO2, Blood 37 mmol/L (21-32); Calcium, Blood 9.1 mg/dL (8.5-10.1); Chloride, Blood 93 mmol/L (98-108); Creatinine, Blood 1.35 mg/dL (0.60-1.20); Glomerular Filtration Rate 62 (60-); Glucose, Blood 109 mg/dL (70-99); Phosphorus, Blood 3.7 mg/dL (2.5-4.9); Potassium, Blood 2.6 mmol/L (3.5-5.5); Sodium, Blood 138 mmol/L (136-145)
--- NOTE | 2022-05-18 07:15 | NUR ---
Assumed care of pt at 0700. Report received from [facility]. Pt A&O x 4. Answers questions, follows commands, verbalizes needs. Pleasant and cooperative with care. SpO2 90% or greater with room air. ST per monitor. Bumex at 0.2 mg/hr and dobutamine 2 mcg/kg/min.
--- NOTE | 2022-05-18 10:31 | NUR ---
"Spiritual Care | Nurse Request Pt. is awake sitting up in a recliner. Pt. is pleasant but quickly declined spiritual care. Listened empathetically with a calming presence. Offered to be available to be a listening voice. Pt. graciously declined, but verbalize gratitude for the attempted Spiritual Care."
--- NOTE | 2022-05-18 18:04 | NUR ---
SUMMARY No acute changes t/o shift. Pt remains on bumex at 0.2 mg/hr and dobutamine at 2 mcg/kg/min. Excellent urine output this shift. Pt had BM this shift on BSC. ST per monitor with stable BP. Pt had episode of 5/10 chest pain, described as "crushing". Notified Dr Akins. Provider ordered stat troponin, but also stated that given the condition of his heart, it is likely that patient will experience intermittent chest pain. Excellent appetite. Pt has been quite depressed today. Therapeutic communication offered. Asked submarine advisory team watch officer to see patient, but pt was not interested in speaking to him. Angella RN from palliative care in to see patient, and patient talked at length to Angella. Patient wore graduated compression stockings for approx 8 hours today, has recently requested they are taken off.
--- NOTE | 2022-05-18 19:26 | NUR ---
TOOK OVER CARE OF PT AT 1900, PT ON 4L NC, 0.2 BUMEX GTT, AND DOBUTAMINE GTT AT 2MCG/KG/HR
--- NOTE | 2022-05-19 00:03 | NUR ---
SHIFT SUMMARY NEURO: A/OX4, GENERALIZED WEAKNESS, BASELINE NEUROPATHY BLE. CARDIAC: IV POTASSIUM REPLACMENT. SINUS TACH. OCCASIONAL PVC'S. DOBUTAMINE AND BUMEX GTT RUNNING AT SET RATES. +4 EDEMA BLE, +2 GENERALIZED. PULSES FAINT BLE, STRONG RADIAL PULSES. LUNGS: PT WEARING 2-4L NC NEEDED. LUNGS CLEAR WITH DIMINISHED BASES. DYSPNEA ON EXCERTION. SKIN: BRUISING SCATTERED, REDNESS ON GLUTEAL FOLD, SMALL SCABS ON LEFT SECOND TOE. GI: ACTIVE BOWEL TONES, NO TENDERNESS. : DUONG IN PLACE, DRAINING TO GRAVITY BELOW LEVEL OF BLADDER. DUONG CARE COMPLETED. PT HAD COMPLAINTS OF BEING SORE DURING DUONG CARE. URINE OUTPUT RANGING FROM 200ML-250ML/HR WITH BUMEX GTT.
[2022-05-19 06:04] LABS: Albumin, Blood 3.1 g/dL (3.4-5.0); Anion Gap 6 mmol/L (6-16); Blood Urea Nitrogen 19 mg/dL (8-24); Bun/Creatinine Ratio 12.8 (12.0-20.0); CO2, Blood 41 mmol/L (21-32); Calcium, Blood 9.3 mg/dL (8.5-10.1); Chloride, Blood 89 mmol/L (98-108); Creatinine, Blood 1.48 mg/dL (0.60-1.20); Glomerular Filtration Rate 55 (60-); Glucose, Blood 98 mg/dL (70-99); Magnesium, Blood 2.1 mg/dL (1.6-2.4); Phosphorus, Blood 3.4 mg/dL (2.5-4.9); Potassium, Blood 3.1 mmol/L (3.5-5.5); Sodium, Blood 136 mmol/L (136-145)
--- NOTE | 2022-05-19 09:55 | NUR ---
PT REFUSES SCD'S
--- NOTE | 2022-05-19 10:00 | NUR ---
PT RESTING IN BED. A/O X4. DENIES CP, SOB, AND N/V. PT REPORTS FEELING TIRED TODAY. DOBUTAMINE GTT OFF PER DR. CURIEL. DR. CURIEL ALSO WANTED PT TO WEAR SCD'S BUT PT DECLINED. ON BUMEX GTT, 1250 IN URINE OUT ALREADY THIS SHIFT.
--- NOTE | 2022-05-19 12:44 | NUR ---
Late entry note from 05/18 did not post. theraputic tiem with pateint to discuss his grief and stress. He he is worried about his coping but mostly her ptsd from doing cpr on him and the past few months. We reviewed his life and his work he makes [employer]. He was tearfull and reviewing regret in his live. Kept my comments minimal. gave him belkis mints and a small amount of coffee. wolfgang Akins is lowering his dobutamine drip. Will continue to follow.
--- NOTE | 2022-05-19 18:07 | NUR ---
SUMMARY PT A/O X4. DENIES CP OR PRESSURE TODAY. PT GETS SOB WITH EXERTION WHICH IS NOT NEW. DOBUTAMINE GTT WAS TURNED OFF TODAY PER DR. CURIEL AND BUMEX GTT WAS DECREASED. HE IS PREPARING PT TO TRANSITION PT TO PO BUMEX. IF UO DROPS BELOW 75ML/HR, RN IS TO RESTART DOBUTAMINE. PT HAS BEEN UP TO CHAIR FOR MEALS WITH MINIMAL ASSIST. NO SIGN OF DISTRESS. USES CALL LIGHT APPROPRIATELY.
--- NOTE | 2022-05-19 19:13 | NUR ---
TOOK OVER CARE OF PT AT 1900, PT ON BUMEX GTT AT 0.1MG, 2LNC.
[2022-05-19 20:14] LABS: Bun/Creatinine Ratio 13.6 (12.0-20.0); Calcium, Blood 8.7 mg/dL (8.5-10.1); Creatinine, Blood 1.54 mg/dL (0.60-1.20); Potassium, Blood 3.3 mmol/L (3.5-5.5)
--- NOTE | 2022-05-20 06:44 | NUR ---
SUMMARY NEURO: BASELINE NEUROPATHY, A/OX4 LUNGS: CLEAR UPPER LOBES, DIMINISHED BASES. 4LNC, CANDIDO CARDIAC: TACHY, EDEMA PRESENT. BUMEX GTT AT 0.1. POTASSIUM REPLACED PER PROTOCOL. DOBUTAMINE ON SB. GI: PT HAD PERSISTENT CO HEARTBURN, GI COCKTAIL GIVEN. : DUONG IN PLACE. 100-150ML UNRINE OUTPUT THIS SHIFT.
[2022-05-20 07:13] LABS: Anion Gap 3 mmol/L (6-16); Blood Urea Nitrogen 20 mg/dL (8-24); Bun/Creatinine Ratio 13.2 (12.0-20.0); CO2, Blood 41 mmol/L (21-32); Chloride, Blood 92 mmol/L (98-108); Creatinine, Blood 1.52 mg/dL (0.60-1.20); Glomerular Filtration Rate 53 (60-); Glucose, Blood 122 mg/dL (70-99); Magnesium, Blood 2.1 mg/dL (1.6-2.4); Phosphorus, Blood 3.2 mg/dL (2.5-4.9); Potassium, Blood 3.5 mmol/L (3.5-5.5); Sodium, Blood 136 mmol/L (136-145)
--- NOTE | 2022-05-20 09:32 | NUR ---
PT UP TO CHAIR FOR BREAKFAST. PT APPEARS FATIGUED TODAY. C/O BLADDER SPASMS AND SORENESS AROUND CATHETER. ALSO STATES HE HAS PAIN MID STERNUM THAT MIGHT BE INDIGESTION. WHILE TRANSFERING PT BACK TO BED HE BELCHED. AFTER RESTING IN BED FOR A FEW MINUTES PT ASKED FOR MORPHINE FOR BLADDER SPASMS. WHILE GETTING THE MORPHINE PT STATES HE IS HAVING PAIN IN HIS CHEST DOWN TO L HAND. DR. CURIEL NOTIFIED AND AT BEDSIDE IMMEDIATELY. GAVE MORPHINE AND PT STATES PAIN WENT FROM 7/10 TO 2/10 AND STATES IT FEELS MORE LIKE A SORENESS LIKE A BRUISE. GAVE EXTRA DOSE OF IMDUR PER DR. CURIEL AND DOSE INCREASED.
--- NOTE | 2022-05-20 18:08 | NUR ---
SUMMARY PT UP TO CHAIR THIS EVENING. DENIES CP AFTER EPISODE THIS AM, HE RECEIVED MORPHINE. AFTER MORPHINE DOSE PT WAS ABLE TO SLEEP FOR A BIT AND WOKE FEELING BETTER. GENERALIZED WEAKNESS T/O FROM HEART FAILURE. ABLE TO GET HIMSELF UP AND DOWN FROM BED TO COMMODE WITH MINIMAL ASSIST. REMAINS OFF DOBUTAMINE GTT TODAY. ON BUMEX GTT STILL AND UO GREATER THAN 100ML/HR. AD HAD SOME LIGHT RED IN TUBING AT ONE POINT TODAY BUT IT HAS CLEARED UP. PT STATES AD GOT TUGGED ON DURING TRANSFER DURING THE NIGHT. AFTER RECEIVING SANCTURA THIS AM PT HAS NOT COMPLAINED OF SPASMS. NO SIGN OF DISTRESS. PT USES CALL LIGHT APPROPRIATELY.
--- NOTE | 2022-05-20 19:58 | NUR ---
TOOK OVER CARE OF PT AT 1900, PT ON BUMEX GTT AND 4L NC.
--- NOTE | 2022-05-21 05:49 | NUR ---
SUMMARY NEURO: BASELINE NEUROPATHY, A/OX4 LUNGS: 4LNC, DIMINISHED BASES, CANDIDO GI: WNL : DUONG IN PLACE, PINK. 100-150ML/HR OUTPUT. CARDIAC: TACHY 110'S, BLOOD PRESSURES BECOMING SOFT. +3/4 EDEMA BLE.
[2022-05-21 07:21] LABS: Anion Gap 5 mmol/L (6-16); Blood Urea Nitrogen 22 mg/dL (8-24); Bun/Creatinine Ratio 14.1 (12.0-20.0); CO2, Blood 43 mmol/L (21-32); Calcium, Blood 9.1 mg/dL (8.5-10.1); Chloride, Blood 90 mmol/L (98-108); Creatinine, Blood 1.56 mg/dL (0.60-1.20); Glomerular Filtration Rate 51 (60-); Glucose, Blood 126 mg/dL (70-99); Magnesium, Blood 2.2 mg/dL (1.6-2.4); Phosphorus, Blood 3.5 mg/dL (2.5-4.9); Potassium, Blood 3.5 mmol/L (3.5-5.5); Sodium, Blood 138 mmol/L (136-145)
--- NOTE | 2022-05-21 11:27 | NUR ---
Pt is lying in bed and asleep. Pt's spouse, Isac, is bedside and drops an item in the trash can and it wakes pt up suddenly. He immediately tells us that he had a "horrible night and lost several days." He engages in some conversation but then within minutes falls asleep mid-sentence. Isac shows signs of being distraught over pt's decline today. She is repeating questions and not processing the information well. Pt's RN Emilia patiently answers Isac's questions and reassures her of the care that will continue to be administered to the pt. Isac and I then wake pt for a moment so she can tell him, "Goodbye." He says that he would like a prayer said and so I gladly provided prayer. Pt says a strong "Amen." I will continue to remain available to pt and family.
--- NOTE | 2022-05-21 13:56 | NUR ---
UPDATE: PT A&Ox4, ANSWERING QUESTIONS APPROPRIATELY, COOPERATIVE W/CARE. O2 SATS >93%, CURRENTLY RECEIVING 3L/MIN NC. PT DENIES SOB. SIN TACH ON MONITOR, RATE 100s-110s. BUMEX INFUSION DC'd THIS AM, ORDERS TRANSITIONED TO IVP TID. SHORTLY AFTER BUMEX DC'd PT C/O CHEST PAIN, MEDICATED PER EMAR, REPORTS MINIMAL RELIEF AND CONCERN THAT IT IS ACID REFLUX. PROVIDER NOTIFIED AND PT MEDICATED PER EMAR. AFTER THIS EPISODE, PT BEGINS TO TALK ABOUT WANTING TO TRANSITION TO COMFORT CARE. PALLIATIVE CARE DEPT NOTIFIED, TANGELA [facility] ARRIVES TO BEDSIDE TO DISCUSS PLAN OF CARE. AT THIS TIME, PT HAS TRANSITIONED TO COMFORT CARE. ORDERS HAVE BEEN PLACED BY TANGELA E[facility]. INDWELLING DUONG CONTINUES IN PLACE, DRAINING TO GRAVITY, U.O. CONTINUES >75 ML/HR. PT RESTING IN BEDSIDE CHAIR, DENIES DISCOMFORT OR ANY NEEDS AT THIS TIME. CALL LIGHT IN REACH.
--- NOTE | 2022-05-21 18:41 | NUR ---
SHIFT SUMMARY: SEE PREVIOUS NOTE FOR SUMMARY. SINCE LAST NOTE, PT C/O CHEST PAIN AFTER TRANSFERRING SELF FROM RECLINER TO BED. PT MEDICATED ONE TIME PER EMAR, REPORTS MINIMAL RELIEF, DENIES FURTHER MEDICATION. PT ALSO DENIES DINNER TRAY, DENIES APPETITE AND NOT ABLE TO VERBALIZE ANYTHING THAT SOUNDS APPEALING. OVER THE PAST COUPLE HOURS, PT HAS BEEN RESTING QUIETLY IN BED, DENIES NEEDS, CALL LIGHT WITHIN REACH.
--- NOTE | 2022-05-22 00:12 | NUR ---
0000 PT ARRIVED TO ROOM FROM ICU. PT REPORTS BACK PAIN AND NAUSEA, ALSO APPEARS TO BE HAVING A LITTLE ANXIETY. WILL GIVE ATIVAN AND ROXANOL AND EVAL FOR EFFECT. DUONG HAS TEA COLORED URINE. NO OTHER APPARENT SIGNS OF DISTRESS. CALL LIGHT IS IN REACH. BED ALARM IS ON.
--- NOTE | 2022-05-22 02:27 | NUR ---
0200 PT LYING IN BED, EYES CLOSED, WAKES EASILY TO VERBAL STIMULI. DENIES ANY DISCOMFORT AT THIS TIME. NO APPARENT SIGNS OF DISTRESS. CALL LIGHT IS IN REACH. BED ALARM IS ON.
--- NOTE | 2022-05-22 04:33 | NUR ---
PT IS AAO X 4, ON 3LNC OR RA PT CHOOSES. PT REPORTS BACK PAIN, NAUSEA, SOB AND ANXIETY. GOT ROXONAL, ATIVAN AND NAUSEA MEDS. PT HAS DUONG WITH TEA COLORED URINE. EDEMA WITH 3-4+ PITTING.
--- NOTE | 2022-05-22 04:33 | NUR ---
0400 PT LYING IN BED, EYES CLOSED, APPEARS TO BE RESTING. BREATHING IS EVEN, UNLABORED. NO APPARENT SIGNS OF DISTRESS. CALL LIGHT IS IN REACH. BED ALARM IS ON.
--- NOTE | 2022-05-22 06:01 | NUR ---
PT LYING IN BED, EYES CLOSED, APPEARS TO BE RESTING. BREATHING IS EVEN, UNLABORED. NO APPARENT SIGNS OF DISTRESS. CALL LIGHT IS IN REACH. BED ALARM IS ON. NO OTHER CHANGES THIS SHIFT.
--- NOTE | 2022-05-22 15:15 | NUR ---
Made a visit to pt today, he reports he just had a "raoul bedbath", and is ready for a good nap. He requests earplugs and sleep mask, retreived these items for him. Pt has been talking to bedside RN and Candy Butcher about costs, and not wanting his burdened with this. He and I have had previous conversations about whole body donation, but considering his current situation it would be understandable that he forgot. I was able to print out the 2 page application from [employer], will drop it off with him later today. I called pt's Celestine to remind her it is of utmost importance she call [employer] to reapply for long-term care medicaid. I explained she is the only one able to start the process. The pt, his and 2 teenage sons live in a studio apartment with 29 stairs, and both Celestine and one of the sons are reported to have autism. Both pt and Celestine have verbalized there is no way she could care for him at home.
--- NOTE | 2022-05-22 19:20 | NUR ---
Contacted by bedside RN at change of shift, pt has further declined; experiencing increased air hunger. Reviewed strategies of medication management. Pt may be eminent. Will re-evaluate in the morning.
--- NOTE | 2022-05-22 20:09 | NUR ---
SHIFT SUMMARY- PT HAS HAD SOME CHANGES IN RESPIRATIONS TODAY, HAVING SOME LONGER PAUSES. HE WAS ABLE TO VERBILIZE NEED FOR MEDICATION T/O THE SHIFT AND APPEARED COMFORTABLE. 30 MIN PRIOR TO SHIFT CHANGE HE HAD REMOVED HIS O2 AND STATED HE DID NOT FEEL LIKE HE NEEDED IT AT THIS TIME. THIS RN OFFERED TO PUT IT BACK ON AND HE DECLINED. AT SHIFT CHANGE DURING BEDSIDE REPORT THE PT WAS SLEEPING, HE AWOKE TO STAFF IN THE ROOM AND APEARED PANICKED AND WAS IN A LOT OF PAIN, HE HAD DECLINED PAIN MANAGEMENT EARLIER AND SUCH WAS MEDICATED DURING REPORT WITH 20MG SL ROXINOL AND 1MG PO ATIVAN CRUSHED SL. MIXTURE SHOWED THE BEST RESULTS FOR THE PT THIS MORNING. PT DID HAVE A SPOUNGE BATH TODAY, CATH CARE PERFORMED AND STATLOCK REPLACED A BIT HIGHER, IT WAS APPLYING PRESSURE TO THE PT MEATUS WHERE IT WAS. PT HAS HAD MINIMAL OUTPUT IN THE FOLY TODAY, BUT HE DOES NOT APPEAR TO BE DRINKING VERY MUCH. AFTER MEDICATION AND O2 BEING REAPPLIED, BEDSIDE REPORT WAS COMPLETED. PT APPEARS TO BE MUCH MORE COMFORTABLE AT THIS TIME.
--- NOTE | 2022-05-23 19:57 | NUR ---
SUMM- PT ON COMFORT CARE. AWAKE THIS AM, CHEYNESTOKE BREATHING. PERIODS OF APNEA WITH GASPING AND RAPID BREATHING, APPEARING AIR HUNGER. MEDICATED THIS AM WITH MORPHINE AND ATIVAN AND PEPOSITIONED. PT IN A SEMICOMATOSE STATE MOST OF THE DAY, COULD ANSWER YES AND NO, DIDN'T WANT TO BE MOVED. HAS DUONG WITH DARK CONCENTRATED URINE. CONT T/O DAY WITH ROXONOL AND PT APPEARED MORE COMFORTABLE AND NOT GASPING FOR AIR, CONT WITH CHEYNESTOKE RHYTHM. BECAME MORE ALERT THIS PM AND LEGS BEGAN FIDGITING WITH BREATHING. MEDICATED AGAIN WITH ATIVAN AND ROXONOL. REPORTED TO [facility].
--- NOTE | 2022-05-24 04:42 | NUR ---
SHIFT SUMMARY; PT CONTINUES WITH FABIOLA-FLOYD BREATHING PATTERN FOLLOWED BY PERIODS OF RAPID BREATHING. PT WITH RESTLESS LEGS THROUGHOUT THE NIGHT AND FIGITING, MEDICATED WITH ROXANOL AND ATIVAN PER EMAR WITH GOOD RELIEF. PT REPOISTIONED MULTIPLE TIMES THROUGHOUT THE NIGHT. PT WITH DARK [place] URINE DRAINING INTO HIS DUONG THIS PM. BABY POWDER APPLIED TO THE PTS PANNUS AND BACK TO HELP WITH IRRITATION. PTS MOUTH SWABBED WITH LEMON GLYCEROL SWABS TO HELP WITH DRY MOUTH. PTS FACE AND EYES WIPED WITH WET WASH CLOTH. PT CLAMMY/DIAPHORETIC THIS PM. CURRENTLY THE PT IS RESTING IN BED WITH THE BED IN THE LOWEST POSITION AND THE CALL LIGHT ON HIS BELLY.
--- NOTE | 2022-05-24 14:58 | NUR ---
Comfort Care: Pt remains on comfort care. He is requiring lorazepam and roxanol as needed for air hunger and anxiety, and waking very little. Note continued periods of hans hollingsworth. Will continue to monitor.
--- NOTE | 2022-05-24 17:13 | NUR ---
DAYSHIFT SUMMARY Patient resting in bed, sleeping soundly, arouses to voice/touch. Occasionally groans/moaning louding, PRN Morphine & Ativan given for pain/respiratory distress. 3lpm oxygen in place for comfort. Patient is not alert/awake this shift, did not ask for food/water, oral care provided. Awaiting discharge planning.
--- NOTE | 2022-05-25 07:11 | NUR ---
Rn summary: Patient is comfort care. Patient opens eyes to verbal and touch stimuli but does not otherwise respond. He does moan with repositioning. Pt did have leaking from right side mid abdomen, looked yellow serous drainage. Pt has hauser cath with some but minimal output. Pt medicated x3 with roxanol 20mg, ativan 1mg x1 at 0211. Pt more restless this am. Pt repositioned but difficult to turn due to height and size. Pt is on 3 liters for comfort. Pt moves arms at times, does not move legs. Patient did have brown emisis after turning at 2315, and brown mehta mucus, zofan given, [place] up some, no further emisis. Freq checks, family is home ill, not visiting per report at this time.
--- NOTE | 2022-05-25 11:14 | NUR ---
Patient appeared restless & uncomfortable this morning. Pulling at TX, gave Morphine for air hunger & pain. MD assessed patient at bedside, patient continues to moan loudly, gave another dose of Morphine. Checked on patient and patient was found to be without pulse, respirations. 2nd RN verified, pallilative notifed, and was called. MD notified, time of 1000. [facility] home called, awaiting transportation.
--- NOTE | 2022-05-25 12:22 | NUR ---
CALL TO RE HOME CALL TO [facility] DIRECTORS FOR PATIENT WET PROCESS OPERATOR. VOICEMAIL LEFT FOR SPOUSE MI INFORMNG OF HME SELECTION.
--- NOTE | 2022-05-25 13:32 | NUR ---
Patient left unit at 1330, home did not take belongings. will collect belongings and notifiy family to pickling operator.
== END 2022-05-25 10:00 | DRG 291 ==
LOC: ER 13:44 → ICUW 15:36 → MEDS 15:36 → ICUW 05-10 13:55 → ICUE 05-11 17:26 → MEDS 05-21 23:22
PROVIDERS: Emergency Medicine; Family Medicine; Internal Medicine; Internal Medicine Interventional Cardiology; Internal Medicine Nephrology; ADMIT Internal Medicine
DX: I13.0 Hypertensive heart and chronic kidney disease with heart failure and stage 1 through stage 4 chronic kidney disease, or unspecified chronic kidney disease (principal); I50.43 Acute on chronic combined systolic (congestive) and diastolic (congestive) heart failure; N17.9 Acute kidney failure, unspecified; I95.9 Hypotension, unspecified; I25.10 Atherosclerotic heart disease of native coronary artery without angina pectoris; E11.22 Type 2 diabetes mellitus with diabetic chronic kidney disease; N18.31 Chronic kidney disease, stage 3a; D63.1 Anemia in chronic kidney disease; G47.00 Insomnia, unspecified; F32.A Depression, unspecified; Z51.5 Encounter for palliative care; R74.02 Elevation of levels of lactic acid dehydrogenase [LDH]; F41.9 Anxiety disorder, unspecified; K25.9 Gastric ulcer, unspecified as acute or chronic, without hemorrhage or perforation; E78.5 Hyperlipidemia, unspecified; I25.5 Ischemic cardiomyopathy; E66.01 Morbid (severe) obesity due to excess calories; E03.9 Hypothyroidism, unspecified; E87.6 Hypokalemia; D50.9 Iron deficiency anemia, unspecified; I27.20 Pulmonary hypertension, unspecified; I72.8 Aneurysm of other specified arteries; G47.9 Sleep disorder, unspecified; I25.2 Old myocardial infarction; Z87.19 Personal history of other diseases of the digestive system; Z95.5 Presence of coronary angioplasty implant and graft; Z79.899 Other long term (current) drug therapy; Z68.39 Body mass index [BMI] 39.0-39.9, adult; Z86.73 Personal history of transient ischemic attack (TIA), and cerebral infarction without residual deficits; Z86.711 Personal history of pulmonary embolism; Z86.718 Personal history of other venous thrombosis and embolism; Z79.01 Long term (current) use of anticoagulants; Z79.02 Long term (current) use of antithrombotics/antiplatelets; Z79.4 Long term (current) use of insulin
CPT/HCPCS: 36415; 51703; 71045; 76770; 80048; 80053; 80069; 80162; 81003; 82570; 82607; 82728; 82746; 82947; 83540; 83550; 83605; 83735; 83880; 83970; 84100; 84132; 84156; 84484; 84540; 85025; 87205; 93005; 93010; 93971; 94762; 96374; 97166; 97530; 99285-25; A9270; C1751; J1250; J1815; J2060; J2270; J2405; J2760; J2916; J3480; J7050; J7060